=== PATIENT | male | born 1975 | race Caucasian/White ===

== ENCOUNTER 2023-08-06 12:35 | Outpatient (CLI) | payer BC | END 2023-08-06 12:36 | disposition home or self-care (01) | LOC: CSHULT 12:35 | PROVIDERS: ATTEND Family Medicine | DX: U09.9 Post COVID-19 condition, unspecified (principal); M25.50 Pain in unspecified joint; R06.02 Shortness of breath; I51.7 Cardiomegaly; R93.1 Abnormal findings on diagnostic imaging of heart and coronary circulation ==

== ENCOUNTER 2025-05-10 09:07 | Outpatient (CLI) | payer BC | END 2025-05-10 09:08 | disposition home or self-care (01) | LOC: CSHULT 09:07 | PROVIDERS: ATTEND Internal Medicine Gastroenterology | DX: K62.5 Hemorrhage of anus and rectum (principal); R74.8 Abnormal levels of other serum enzymes; D64.9 Anemia, unspecified; Z86.0100 Personal history of colon polyps, unspecified | CPT/HCPCS: 76705 ==